=== PATIENT | male | born 1950 | race Caucasian/White ===

== ENCOUNTER 2025-03-12 11:20 | Outpatient (CLI) | payer MEDICARE ==
[~2025-03-12 11:20] MED LIST: ATOR40TA72 PO; FINA5TAB12 PO; IODIXANOL 320 MG/ML INFUS..BTL 100ML IV ONE; RIVA20TA PO; TAMS-55 PO
[2025-03-12 12:04] LABS: BASOPHILS % (AUTO) 0.5 % (0-1); EOSINOPHILS # (AUTO) 0.1 X10'3 (0-0.9); EOSINOPHILS % (AUTO) 1.2 % (0-6); HEMATOCRIT 45.7 % (42.0-52.0); HEMOGLOBIN 15.3 g/dl (14.0-17.9); LYMPHOCYTES # (AUTO) 1.9 X10'3 (1.1-4.8); LYMPHOCYTES % (AUTO) 30.2 % (21-51); MEAN CORPUSCULAR HEMOGLOBIN 28.7 PG (27.0-31.0); MEAN CORPUSCULAR HGB CONC 33.6 g/dL (33.0-36.5); MEAN CORPUSCULAR VOLUME 85.4 FL (78-98); MONOCYTES # (AUTO) 0.6 X10'3 (0-0.9); MONOCYTES % (AUTO) 9.9 % (2-12); NEUTROPHILS # (AUTO) 3.6 X10'3 (1.8-7.7); NEUTROPHILS % (AUTO) 58.2 % (42-75); PLATELET COUNT 194 X10'3 (140-440); RED BLOOD COUNT 5.35 X10'6 (4.70-6.10); WHITE BLOOD COUNT 6.2 X10'3 (4.5-11.0)
--- NOTE | 2025-03-12 12:10 | RADIOLOGY REPORT ---
EXAM: DI CHEST,TWO VIEWS HISTORY: TAVR COMPARISON: None TECHNIQUE: Frontal and lateral views of the chest were performed. FINDINGS: There is mild central peribronchial thickening. No pneumothorax, pulmonary edema, pleural effusions, or consolidative infiltrates. The lungs are hyperexpanded with flattening of the diaphragm on the lat eral film. The heart is not enlarged. The aortic arch is calcific. No fractures are identified about the bony thorax. There is moderate reactive airways disease. IMPRESSION: 1. Reactive airways disease and pulmonary hyperexpansion. 2. Atherosclerotic vascular disease.
[2025-03-12 12:15] LABS: APTT 31 SECONDS (22-32); INR 1.2 INR; PROTHROMBIN TIME 12.1 SECONDS (9.0-12.0)
[2025-03-12 12:26] LABS: ALANINE AMINOTRANSFERASE 32 U/L (12-78); ALBUMIN 4.1 G/DL (3.4-5.0); ALBUMIN/GLOBULIN RATIO 1.2 (1.1-1.5); ALKALINE PHOSPHATASE 81 IU/L (46-116); ANION GAP 9 (8-16); ASPARTATE AMINO TRANSFERASE 14 U/L (10-37); BILIRUBIN,TOTAL 1.1 MG/DL (0.1-1.0); BLOOD UREA NITROGEN 16 MG/DL (7-18); CHLORIDE 107 MMOL/L (99-107); CREATININE 0.94 MG/DL (0.60-1.10); GLUCOSE 165 MG/DL (70-104); POTASSIUM 4.3 MMOL/L (3.5-5.1); PRO BRAIN NATRIURETIC PEPTIDE 155 PG/ML (0-450); SODIUM 141 MMOL/L (135-145); TOTAL CARBON DIOXIDE 24.9 MMOL/L (24-32); TOTAL PROTEIN 7.4 G/DL (6.4-8.2); eGFR 78 ML/MIN
--- NOTE | 2025-03-17 17:27 | RADIOLOGY REPORT ---
Procedure: CT CTA TAVR Reason for study/Clinical History: Chest pain, evaluate for dissection. Comparison Study: None Exam Date: 03/12/2025 01:21 PM TECHNIQUE: Multiplanar reformatted images were generated from volumetric data acquired on a multidetector CT [facility]. Cardiac gating was utilized. Arterial phase images were obtained through the chest, abdomen and pelvis following intravenous administration of contrast material. 100 mL visipaque [address] dose reduction techniques were utilized. 3-D reconstructions were performed on an independent work station. Radiation Dose Information: CT Dose: CTDI volume is 65 mGy. Dose-length product is 2624 mGy*cm FINDINGS: Vascular: Aortic measurements: Aortic annulus: 29.9 x 25.9 mm Sinus of valsalva: right cusp 35.6 mm, left cusp 37.4 mm, non-coronary cusp 35.8 mm Right coronary distance: 14.2 Left coronary distance: 19.3 ST junction 30.1 mm Ascending aorta 36 mm Aortic arch 29 mm Descending aorta 26 mm Aortic hiatus 25 mm Upper abdominal aorta 25 mm Minimal abdominal aorta 15.7 mm Right common iliac 9.42 mm, tortuosity index 1.442 Left common iliac 11.6 mm, tortuosity index 1.17 There is normal caliber of aorta. No aortic dissection. Aortic arch anatomy is conventional. There is conventional coronary artery anatomy. Scattered calcified atherosclerotic plaque. No central pulmonary embolism. There is normal dimension of the main pulmonary artery. Heart is normal. There are no intracardiac filling defects. No pericardial effusion. Mediastinum: There is no significant intrathoracic or axillary lymphadenopathy by CT size criteria. Lungs: Right middle lobe nodule measuring up to 6 mm. Atelectasis and scarring in the lung bases. Pleura: No effusion or pneumothorax. Chest wall: No acute abnormality. Abdomen and Pelvis: Liver: Normal in appearance. Gallbladder: Normal in appearance. Spleen: Normal in appearance. Pancreas: Normal in appearance. Adrenals: Normal in appearance. Kidneys: Bilateral renal cysts. No hydronephrosis. Bladder is decompressed and mildly thick-walled. Superior bladder diverticulum. Bowel: Normal in appearance. Peritoneum: No free air or free fluid. Lymph nodes: No lymphadenopathy by CT size criteria. Pelvic structures: Enlarged prostate with impression on the base of the bladder. Bones: Normal in appearance. IMPRESSION: 1. TAVR planning with vascular measurements as described above. 2. Right middle lobe nodule measuring up to 6 mm. Consider follow-up chest CT in 6-12 months. Bilate ral renal cysts. Bladder diverticulum. Prostatomegaly. HS:Y
== END 2025-03-12 23:59 | disposition home or self-care (01) ==
LOC: RAD 11:20
PROVIDERS: ATTEND Internal Medicine Cardiovascular Disease
DX: N28.1 Cyst of kidney, acquired (principal); N40.0 Benign prostatic hyperplasia without lower urinary tract symptoms; K57.30 Diverticulosis of large intestine without perforation or abscess without bleeding; R91.1 Solitary pulmonary nodule; J98.11 Atelectasis; J98.4 Other disorders of lung; I35.0 Nonrheumatic aortic (valve) stenosis; R06.02 Shortness of breath; I65.29 Occlusion and stenosis of unspecified carotid artery
CPT/HCPCS: 36415; 71046; 71275; 74175; 75572; 80053; 83880; 85025; 85610; 85730; Q9967

== ENCOUNTER 2025-04-22 08:27 | Inpatient (IN) | payer MEDICARE ==
--- NOTE | 2025-04-19 12:14 | ELECTROCARDIOGRAPH REPORT ---
[facility] Test Date: 2025-04-19 Test Time: 12:10:06 Pat Name: YUE ABREU Department: PRE/OP CARDIOLOGY Room: Gender: M Breastfeeding Educator: GUSTAVO : 1950 Requested By: DEANDRE SALCIDO Order Number: [id number] Reading MD: Dr. ROBERTH Chicas Measurements Intervals [place] Rate: 65 P: 58 [place]: 213 QRS: -32 QRSD: 98 T: 87 QT: 419 QTc: 436 Interpretive Statements Sinus rhythm Atrial premature complex Borderline prolonged [place] interval Left axis deviation Borderline low voltage, extremity leads Abnormal R-wave progression, early transition Electronically Signed On 04-20-2025 17:11:[address] ROBERTH Chicas Please click the below link to view image of tracing.
[2025-04-19 12:26] LABS: PRE OP INR 1.2 INR; PRE OP PARTIAL THROMB. TIME 29.0 SECONDS (22-32); PRE OP PROTIME 12.3 SECONDS (9.0-12.0)
[2025-04-19 12:27] LABS: LEUKOCYTE ESTERASE ,URINE SMALL (Neg); NITRITES, URINE NEGATIVE (Neg); OCCULT BLOOD,URINE SMALL (Neg)
[2025-04-19 12:28] LABS: MEAN PLATELET VOLUME 7.1 FL (7.4-10.4); PRE OP HEMATOCRIT 45.4 % (42.0-52.0); PRE OP HEMOGLOBIN 15.1 g/dL (14.0-17.9); PRE OP PLATELET COUNT 260 X10'3 (140-440); PRE OP WHITE BLOOD COUNT 6.9 10'3 (4.8-10.8); RED CELL DISTRIBUTION WIDTH 14.8 % (11.5-14.5)
[2025-04-19 12:33] LABS: UA COLLECTION TYPE NON-SPECIFIED
[2025-04-19 12:34] LABS: CREATININE 0.91 MG/DL (0.60-1.10); PRE OP ALT 34 U/L (30-65); PRE OP ANION GAP 11 (8-16); PRE OP AST 15 U/L (10-37); PRE OP BILIRUB, TOTAL 0.8 MG/DL (0.0-1.0); PRE OP GLUCOSE 160 MG/DL (70-104); PRE OP POTASSIUM 4.2 MMOL/L (3.4-5.1); PRE OP SODIUM 141 MMOL/L (135-145); PRO BRAIN NATRIURETIC PEPTIDE 332 PG/ML (0-450); TOTAL CARBON DIOXIDE 26.2 MMOL/L (24-32); eGFR 81 ML/MIN
[2025-04-19 12:35] LABS: MUCUS STRANDS NONE SEEN /LPF (Neg); SQUAMOUS EPITHELIAL CELL,UR FEW /LPF (FEW)
--- NOTE | 2025-04-19 13:15 | RADIOLOGY REPORT ---
CHEST RADIOGRAPH Indication: PREOP Technique: DI CHEST,TWO VIEWS Comparison: 03/12/2025 FINDINGS: The cardiac silhouette is unremarkable. The lungs demonstrate 4 mm right lower lobe pulmonary nodule. 5 mm right upper lobe pulmonary nodule.. The pulmonary vasculature is unremarkable. There is no pleu ral effusion.. There is no pneumothorax. There is [id number] thoracic degenerative disc diseas e IMPRESSION: Right pulmonary nodules. Recommend CT chest to evaluate.
[~2025-04-22] VITALS: Ht 190.5 cm; Wt 103.0 kg
[2025-04-22] VITALS (26 sets, daily range): BP systolic 106–139; BP diastolic 63–99; PULSE 60–99; RESP 11–24; TEMP 97.4–97.8; O2SAT 93–100
[2025-04-22] MEDS: ceFAZolin 2gm/dext,iso 50mL 50 ML IV ONE (05:30)
[2025-04-22] MEDS: phenylephrine inj 50 MG in normal saline 250ml IV solN IV SCH (05:30)
[2025-04-22] MEDS: nitroPRUSSIDE (NIPRIDE) (200MCG/ML) 100ML Drip IV SCH (05:30)
[~2025-04-22 08:27] MED LIST changes: -IODIXANOL 320 MG/ML INFUS..BTL 100ML IV ONE; +ondansetron/PF 4mg/2ml inj IV PRN; +phenylephrine inj 50 MG in normal saline 250ml IV solN IV SCH; +protamine sulfate 10mg/ml inj. ONE
[2025-04-22] MEDS: VANCOMYCIN/H2O 1.5g/300mL PB 300 ML IV ONE (10:02)
[2025-04-22] MEDS: ringers solution, lacted 1,000 ML IV SCH ×2 (10:03→10:30)
[2025-04-22] MEDS ORDERED: hydrALAZINE 20mg/ml inj. IV PRN ×2 (10:30→13:20)
[2025-04-22] MEDS ORDERED: morphine 4 MG/ML inj SYRINge IV PRN (10:30)
[2025-04-22] MEDS ORDERED: labetalol 20mg/4ml (5mg/ml) syringe IV PRN ×2 (10:30→13:20)
[2025-04-22] MEDS ORDERED: ondansetron/PF 4mg/2ml inj IV PRN ×2 (10:30→13:20)
[2025-04-22] MEDS ORDERED: heparin 1,000 UNITS/NS 500ml 1,500 ML ONE (11:47)
[2025-04-22] MEDS ORDERED: LIDOcaine 1% 30ml preserv. free vial ONE (11:47)
[2025-04-22] MEDS ORDERED: fentaNYL/PF 50MCG/1 ML 2ML syringe ONE (12:14)
[2025-04-22] MEDS ORDERED: heparin 1,000unit/ml 10ml vial 10 ML ONE (12:19)
[2025-04-22] MEDS ORDERED: propofol inj 20 ML IV ONE (12:19)
[2025-04-22] MEDS ORDERED: desflurane 240ml liquid inh. IH ONE (12:20)
[2025-04-22] MEDS ORDERED: docusate sod 100mg capsule PO PRN (13:20)
[2025-04-22] MEDS ORDERED: magnesium sulf-water 4G/100mL 100 ML IV PRN (13:20)
[2025-04-22] MEDS ORDERED: HYDROcodone/acetaminophen 5mg/325mg tablet PO PRN (13:20)
[2025-04-22] MEDS ORDERED: potassium Cl 20mEq/100mL bag 100 ML IV PRN (13:20)
[2025-04-22] MEDS ORDERED: potassium Cl 40MEQ/270ML bag 250 ML IV PRN (13:20)
[2025-04-22] MEDS ORDERED: ALPRAZolam 0.25mg tablet PO PRN (13:20)
[2025-04-22] MEDS ORDERED: potassium Cl 20 mEq SR tablet PO PRN (13:20)
[2025-04-22] MEDS ORDERED: magnesium sulf-water 2g/50mL 50 ML IV PRN (13:20)
[2025-04-22] MEDS ORDERED: potassium CL 10mEq/100ml bag 100 ML IV PRN (13:20)
[2025-04-22] MEDS ORDERED: pantoprazole 40mg Tablet.DR PO PRN (13:20)
[2025-04-22] MEDS ORDERED: potassium Cl 40MEQ/1/2NS 520ml 520 ML IV PRN (13:20)
--- NOTE | 2025-04-22 13:24 | OPERATIVE REPORT ---
Operative Report Providers to CC CC: YOSELIN REYES MD ~ Date of Procedure: Apr 22, 2025 Pre-Operative Diagnosis: Severe Aortic Stenosis Post-Operative Diagnosis SAME as PRE-Op Procedure Performed 1. Ultrasound-guided access, bilateral femoral vessels. 2. Bilateral femoral angiography. 3. Ascending aortography. 4. Temporary transvenous pacer to the RV apex. 5. Balloon Aortic Valvuloplasty with a 22mm balloon 6. Placement of a 26+1 mm Stewart S3 Resilia valve. Surgeon: Rafael Reyes MD Metal Template Maker MD Dr. Fareed Nevarez MD Anesthesiologist: Vamsi Quinn Type of Anesthesia: Other Findings: Severe Aortic Stenosis Complications None Prosthetics\Implants used: Stewart 26+1mm S3 Resilia Estimated Blood Loss: Minimal Specimen Removed: None Description of Procedure: The patient was brought to the labor relations or personnel negotiator in a fasting state. They underwent MAC anesthesia. Ultrasound was used to guide access to the bilateral femoral vessels, 7-Swiss sheath, left femoral artery, 6-Swiss sheath, right femoral a rtery and left femoral vein. Bilateral femoral angiograms were obtained. Heparin was given to maintain an ACT over 250 seconds. Two ramin-cross Perclose devices were placed on the right. We upsized to an 8- Swiss sheath. Two pigtail catheters placed in the ascending aorta. Ascending aortography done to determine the angle of deployment. Temporary transvenous pacer to the RV apex and confirmed capture. We upsized an 8-Swiss sheath to a 14-Swiss Stewart eSheath on the right. We crossed the aortic valve using a straight stiff exchange length Terumo wire supported by a 6-Swiss AL1 catheter. LV AO pressures were recorded. A Cook extra support wire was placed in the left ventricle. Next, a 22mm balloon was brought into position and under rapid ventricular pacing, it was inflated. Subsequently, A 26 mm Stewart S3 Resilia valve was brought to position and under rapid right ventricular pacing was deployed. Post-procedure, there was 1+ AI and no residual . Given residual AI, the valve balloon was then re-prepped at 26+1mm and placed across the valve and used for post-dilatation. Repeat aortic root angiography revealed no signifi cant AI. Guidewires and balloons were removed at this time. The temporary pacer was removed. The 14-Swiss Stewart eSheath was removed and the Perclose devices tied with adequate hemostasis. The arterial sheath on the left was removed and a single Perclose tied. The venous sheath on the left was removed and a single Angioseal used for hemostasis. Protamine was given to reverse the effects of heparin. The patient was stable post-procedure. Good pulses in the legs and no evidence of bleeding, transferred to the PACU in stable condition. HEMODYNAMICS: Pre: LV: 168/11 mmHg LVEDP: 29mmHg Ao: 107/54, MAP 73mmHg Post: LV: 114/7 mmHg LVEDP: 20 mmHg Ao: 114/55, MAP 79mmHg RESULTS: 1. Successful balloon aortic valvuloplasty with a 22 mm balloon. 2. Successful placement of a 26+1 mm Stewart S3 Resilia valve, right transfemoral approach, two perclose devices. Resume Xarelto in AM if no signs/symptoms of bleeding. 3. Hypertension: Resume if blood pressure remains stable 4. Afib: Resume OAC as above 5. Acute on chronic diastolic heart failure, LVEDP 29mmHg. Patient will be watched in the recovery area until stable, then transferred to telemetry at that time. RAFAEL REYES MD Apr 22, 2025 13:24
--- NOTE | 2025-04-22 13:43 | ELECTROCARDIOGRAPH REPORT ---
[facility] Test Date: 2025-04-22 Test Time: 13:40:56 Pat Name: YUE ABREU Department: [facility] IN Room: [place] [address] Gender: M Cardiac Technician: JESSICA : 1950 Requested By: RAFAEL MARIA Order Number: [id number] Reading MD: Dr. ROBERTH Chicas Measurements Intervals [place] Rate: 75 P: -68 [place]: 164 QRS: -31 QRSD: 105 T: 88 QT: 455 QTc: 509 Interpretive Statements Sinus or ectopic atrial rhythm Left axis deviation Low voltage, extremity leads Prolonged QT interval Electronically Signed On 04-23-2025 17:31:[address] ROBERTH Chicas Please click the below link to view image of tracing.
[2025-04-22] MEDS: albumin (Human) 5% 250ml 250 ML IV ONE (14:17)
--- NOTE | 2025-04-22 16:53 | CARDIOLOGY REPORT ---
APPROVED REPORT EXAM: Focused, limited intraprocedural transthoracic 2D, spectral and color flow Doppler echocardiogr am during TAVR deployment. Patient Location: CARDIAC PROPERTY INSPECTOR Blood Pressure: 129 / 79 mmHg Heart Rate: 72 bpm Rhythm: SINUS Indications SEVERE AORTIC STENOSIS TRANSIENT ISCHEMIA ATRIAL FIBRILLATION 26mm Stewart Katie 3 Ultra RESILIA Bioprosthetic TAVR (pre dil and post dil) 22mm TRUE balloon Chiseler Head:Christina REYES MD / Interventionalist: Lidia Reyes MD and Laurence Rivero MD. / Surgeon:Zayra ORDONEZ/ Device rep: Catina Esquivel ELS Previous echo: 10/26/24 EN CVC EF: 57%; ELMIRA 0.6; PKV: 4.63; GRAD: 86 / 51; LVOT 2.09; mMR; mTR; LEFT VENTRICLE Normal LV size and wall thickness. Overall systolic function is low normal. LVEF is 55%. TDS RIGHT VENTRICLE RV is normal size and function. TDS ATRIA The left atrium size is grossly normal. TDS AORTIC VALVE Poorly visualized AV appears heavily calcified with significant stenosis demonstrated by reduced excu rsion. ELMIRA, Peak / mean gradients, and Peak velocity are not measurable due to poor image quality, un able to transition to JOHANNA imaging. TDS. ? No insufficiency. BAV: 22mm TRUE balloon. POST DEPLOYMENT ( LOOP: 17): 26 mm Stewart Katie 3 Ultra Resilia bioprosthetic TAVR appears well seated with normal fu nction. Initially, Trace to mild paravalvular leak via AO root angio (ECHO non dx). Post-secondary di latation: ? Trivial paravalvular leak present - TDS to assess exact location. [place], Peak / mean gradi ents, and Peak velocity is not measured due to extremely poor imaging windows. TDS MITRAL VALVE ? Mild MV annular calcification without obvious stenosis. ? Trace regurgitation. Poorly visualized. T DS. TRICUSPID VALVE TV appears structurally normal with ? trace regurgitation. TDS PULMONIC VALVE Pulmonic valve is not visualized. GREAT VESSELS Aortic root is grossly normal in size. Poor visualization. TDS PERICARDIUM Normal pericardium. No effusion. TDS
[2025-04-22] MEDS: sod chloride 0.9% 10ml flush syringe IV SCH (17:09)
[2025-04-22] MEDS: normal saline 1000ml 1,000 ML IV SCH (17:09)
[2025-04-22] MEDS: ceFAZolin 1GM/D5W- ADD-VANTAGE 50 ML IV SCH (17:09)
[2025-04-22] MEDS: vancomycin/NS 1 GM ADD-VANTAGE 250 ML IV SCH (20:32)
[2025-04-23 02:00] VITALS: BP 104/56; PULSE 62; RESP 19; TEMP 97.1; O2SAT 96
[2025-04-23 03:48] VITALS: RESP 20; O2SAT 98
[2025-04-23 06:00] VITALS: BP 111/57; PULSE 66; RESP 13; TEMP 97.4; O2SAT 94
[2025-04-23 06:12] LABS: MEAN PLATELET VOLUME 6.8 FL (7.4-10.4); RED CELL DISTRIBUTION WIDTH 14.6 % (11.5-14.5)
[2025-04-23 06:32] LABS: CREATININE 0.80 MG/DL (0.60-1.10); PRO BRAIN NATRIURETIC PEPTIDE 265 PG/ML (0-450); TOTAL CARBON DIOXIDE 23.3 MMOL/L (24-32); eCRCL 94 ML/MIN; eGFR > 90 ML/MIN
--- NOTE | 2025-04-23 08:16 | ELECTROCARDIOGRAPH REPORT ---
[facility] Test Date: 2025-04-23 Test Time: 08:13:46 Pat Name: YUE ABREU Department: [facility] Room: [place] [address] A Gender: M Solar Applications Development Engineer: JESSICA : 1950 Requested By: RAFAEL MARIA Order Number: [id number] Reading MD: Dr. ROBERTH Chicas Measurements Intervals [place] Rate: 65 P: 55 [place]: 194 QRS: -42 QRSD: 101 T: 58 QT: 445 QTc: 463 Interpretive Statements Sinus rhythm Atrial premature complex Left anterior fascicular block Electronically Signed On 04-23-2025 17:31:[address] ROBERTH Chicas Please click the below link to view image of tracing.
--- NOTE | 2025-04-23 08:17 | RADIOLOGY REPORT ---
CLINICAL INFORMATION: Status post transcatheter aortic valve replacement. TECHNIQUE: Single AP portable chest radiograph was obtained. COMPARISON: Prior chest radiograph dated 04/19/2025. FINDINGS: Interval transcatheter aortic valve replacement, in expected position. No other significant interval change. No evidence of acute disease in the chest. IMPRESSION: 1. Interval transcatheter aortic valve replacement in expected position. 2. No evidence of acute disease in the chest. No other significant interval change.
[2025-04-23 11:00] VITALS: BP 110/55; PULSE 76; RESP 20; TEMP 97.2; O2SAT 99
--- NOTE | 2025-04-23 15:09 | DISCHARGE SUMMARY ---
Discharge Summary Providers to ~ Discharge Summary Admission Diagnosis: Severe Aortic Stenosis Hospital Course DATE OF ADMISSION: 04/22/25 DATE OF DISCHARGE: 04/23/25 Discharge Diagnosis\Comment: Severe aortic stenosis status post TAVR Hypertension Atrial fibrillation on Xarelto Acute on chronic diastolic heart failure with LVEDP 29 mm of mercury Operations\Procedures: 1. Ultrasound-guided access, bilateral femoral vessels. 2. Bilateral femoral angiography. 3. Ascending aortography. 4. Temporary transvenous pacer to the RV apex. 5. Balloon Aortic Valvuloplasty with a 22mm balloon 6. Placement of a 26+1 mm Stewart S3 Resilia valve. Consultants: No consultants Complications: No complications Condition on DC: Stable Continued Medications: Atorvastatin Calcium (Atorvastatin Calcium) 40 Mg Tablet 1 TAB PO HS Finasteride (Finasteride) 5 Mg Tablet 1 TAB PO HS Rivaroxaban (Xarelto) 20 Mg Tablet 1 TAB PO HS Tamsulosin Hcl* (Flomax*) 0.4 Mg Cap.sr.24h 1 TAB PO HS Discharge Summary: This is a 75-year-old male with history of severe aortic stenosis, TIA, atrial fibrillation, hypertension. Presented for planned aortic valve replacement. Underwent placement of a 26 mm Stewart S3 resilient valve via the right transfemoral approach. Tolerated the procedure well. Was monitored overnight in the telemetry unit. Has remained hemodynamically stable. Postoperative testing was reviewed by Dr. Ariana Reyes and Dr. Bobo Rivero. Patient was evaluated and stable for discharge. Has been up and ambulatory. No complaints of chest pain or pressure. No shortness a breath. No dizziness, lightheadedness or syncope. Was asked, but otherwise denies review of systems. Physical exam prior to discharge: General: Awake, alert, oriented. No apparent distress Neck: Supple. Normal range of motion. No JVD Respiratory: Lungs are clear to auscultation bilaterally. No respiratory distress. Chest: Normal shape and size. No accessory muscle use. Cardiovascular: Regular rate and rhythm. S1-S2. No murmur, gallop, rub. Gastrointestinal: Abdomen is soft. Nontender to palpation. Bowel sounds present. Extremities: No lower extremity edema, cyanosis or clubbing. Femoral cath site with dressings clean dry and intact. No ecchymosis or swelling. No hematoma. Neurologic: Alert and oriented x4. Nonfocal Psychiatric: Normal mood and affect. Skin: Normal color. Warm and dry. Plan: Patient is being discharged home in stable condition. He will follow up as scheduled. Activity restrictions reviewed. Resume Aleta trent. Case reviewed with Dr. Deacon Reyes. In agreement with discharge home. *Problems/Diagnosis: (1) Aortic stenosis (2) Essential (primary) hypertension (3) Atrial fibrillation (4) Acute on chronic diastolic heart failure Total Time Spent on D/C: > 30 Minutes Counseling Services Smoking & Tobacco Cessation: N/A Supervising Co-signing Provider: DEBI Balderrama NP Apr 23, 2025 15:09
--- NOTE | 2025-04-23 17:44 | CARDIOLOGY REPORT ---
APPROVED REPORT EXAM: Limited 2D, Doppler, and color-flow Echocardiogram. Patient Location: [facility] Blood Pressure: 104/56 mmHg Heart Rate: 77 bpm Indications ONE DAY FOLLOW UP 26 mm Stewart Katie 3 Ultra RESILIA Bioprosthetic TAVR SALES COACH: Christina Reyes MD Previous ECHO: 04/22/25, [facility], EF: 55; No data for ELMIRA/ GRAD/PKV; 2D Dimensions IVSd 0.8 (0.7-1.1cm) LVDd 5.2 cm PWd 1.1 (0.7-1.1cm) IVSs 1.6 (0.8-1.2cm) LVDs 3.2 (2.5-4.0cm) PWs 1.2 (0.8-1.2cm) LVOT Diameter 2.60 (1.8-2.4cm) LVEF(%) 69.3 (>50%) IVC 16.18 mmFS (%) 39.2 % SV 91.7 ml CO 6.9 L/min M-Mode Dimensions Left Atrium(MM) 3.75 (2.5-4.0cm) Aortic Root 3.36 (2.2-3.7cm) Aortic Valve AoV Peak Eliezer. 250.0 cm/s AoV VTI 43.4 cm AO Peak GR. 25.0 mmHg AO Mean GR. 13 mmHg LVOT VTI 24.36 cm LVOT Peak Eliezer. 134.9 cm/s ELMIRA(VTI)/BSA 2.98 cm2/m2 ELMIRA (VTI) 2.98 cm2 Tricuspid Valve TR P. Velocity 240 cm/s RAP ESTIMATE 10 mmHg TR Peak Gr. 23 mmHg RVSP 33 mmHg LEFT VENTRICLE Normal LV size and wall thickness. Overall systolic function is normal. LVEF is 70%. RIGHT VENTRICLE Right ventricle is moderately dilated with adequate function. Elevated right heart pressures as noted above. ATRIA The left atrium size is normal. AORTIC VALVE 26 mm Stewart Katie 3 Ultra Resilia bioprosthetic TAVR appears well seated with normal function. Tra ce ?paravalvular leak present at 1 o'clock in TTE SAX BASE. ELMIRA is measured at 2.98 cmsq. Peak / mean gradients of 25 / 13 mmHG. Peak velocity is measured at 2.50 m/sec. MITRAL VALVE Mild mitral annular calcification without stenosis. MV not fully evaluated due to limited focused exa m. TRICUSPID VALVE The tricuspid valve is normal in structure with trace regurgitation. GREAT VESSELS The aortic root is normal in size. PERICARDIUM Normal pericardium. No effusion. Anterior epicardial fat pad is present. Other Information Study Quality: Technically Difficult due to body habitus Conclusion Normal LV size and wall thickness. Overall systolic function is normal. LVEF is 70%. Right ventricle is moderately dilated with adequate function. Elevated right heart pressures with an RVSP of 33 mmHG. The left atrium size is normal. 26 mm Stewart Katie 3 Ultra Resilia bioprosthetic TAVR appears well seated with normal function. Tr dileep ?paravalvular leak present at 1 o'clock in TTE SAX BASE. ELMIRA is measured at 2.98 cmsq. Peak / m alyssa gradients of 25 / 13 mmHG. Peak velocity is measured at 2.50 m/sec. Mild mitral annular calcification without stenosis. MV not fully evaluated due to limited focused exa m. The tricuspid valve is normal in structure with trace regurgitation. Normal pericardium. No effusion. Anterior epicardial fat pad is present.
== END 2025-04-23 16:03 | disposition home or self-care (01) | DRG 266 ==
LOC: PAS IN 08:27 → PCU 3S 16:26
PROVIDERS: ADMIT Internal Medicine Cardiovascular Disease; ATTEND Internal Medicine Cardiovascular Disease
PROC: B41D1ZZ Fluoroscopy of Aorta and Bilateral Lower Extremity Arteries using Low Osmolar Contrast (ICD-10-PCS; 2025-04-22)
PROC: 02RF38Z Replacement of Aortic Valve with Zooplastic Tissue, Percutaneous Approach (ICD-10-PCS; principal; 2025-04-22 12:08)
DX: I35.0 Nonrheumatic aortic (valve) stenosis (principal); Z00.6 Encounter for examination for normal comparison and control in clinical research program; I50.33 Acute on chronic diastolic (congestive) heart failure; I11.0 Hypertensive heart disease with heart failure; I48.91 Unspecified atrial fibrillation; Z79.01 Long term (current) use of anticoagulants; Z86.73 Personal history of transient ischemic attack (TIA), and cerebral infarction without residual deficits
CPT/HCPCS: 33361; 36415; 71045; 71046; 76937; 80053; 81001; 82948; 83735; 83880; 85025; 85347; 85610; 85730; 86885; 86900; 86901; 86920; 87077; 87081; 87088; 87186; 93005; 93308; A4314; A4615; A4618; A5200; A6258; A6449; C1725; C1756; C1758; C1760; C1769; C1894; G0378; J0690; J1644; J2003; J2371; J2704; J2720; J3010; J3373; J3375; J3490; J7030; J7040; J7050; J7120; P9045; Q9967